=== PATIENT | female | born 1955 | race Caucasian/White ===

== ENCOUNTER → 2017-11-14 15:52 | Outpatient (CLI) | payer OTHER, SELFPAY ==
--- NOTE | 2017-11-14 16:46 | MRI_ITS ---
STUDY: MRI LUMBAR SPINE WITHOUT CONTRAST REASON FOR EXAM: Female, 62 years old. Low back pain radiating down right leg TECHNIQUE: Standardized fat and water weighted pulse sequences were obtained in the sagittal and axial planes. COMPARISON: November 18, 2008 FINDINGS: T12-L1: Narrowed disc space with desiccation of the disc and moderate bulging of the annulus Normal bilateral facet joints. Normal central canal and bilateral lateral recesses. Normal bilateral intervertebral neural foramina. Normal lumbar lordosis. There is no substantial scoliosis. Normal conus medullaris that terminates at T12-L1 L1-2: Normal endplates. Normal disc height, desiccation and mild bulging of the annulus.. Normal bilateral facet joints. Normal central canal and bilateral lateral recesses. Normal bilateral intervertebral neural foramina. L2-3: Normal endplates. Normal disc height, desiccation and mild bulging of the annulus.. Facet arthropathy. Normal central canal. Moderate bilateral recess and neuroforaminal encroachment.. L3-4: Narrowed disc space with degenerative endplate changes. There is desiccation of the disc and minor annular bulge in association with small left posterolateral/foraminal disc protrusion and right foraminal disc protrusion.. Bilateral facet arthropathy greater on the right.. Normal central canal. Moderate left lateral recess and neural foraminal stenosis with more severe narrowing on the right.. L4-5: Normal endplates. Normal disc height, desiccation and moderate bulging of the annulus. Bilateral facet arthropathy and thickening of ligamenta flava. Mild narrowing of the central canal. Moderate bilateral recess and neural foraminal stenosis. Normal central canal and bilateral lateral recesses. Normal bilateral intervertebral neural foramina. L5-S1: Grade 1 spondylolisthesis. Moderate bulging disc osteophyte complex with left posterolateral/foraminal disc protrusion. Bilateral facet arthropathy and thickening of ligamenta flava more severe on the left. Mild narrowing the central canal. Moderate to severe right lateral recess and neural foraminal stenosis and severe narrowing on the left. Normal visualized sacral ala. Normal visualized paraspinous soft tissue structures. There has been progressive increase in spondylosis and disc disease at all levels since previous study MRI/Spine Lumbar (Routine) IMPRESSION: Moderate spondylosis and multilevel disc disease.. Multilevel spinal stenosis secondary to disc disease and bony hypertrophy most severe in the right at L3-4 and on the right L5-S1 with findings as above Electronically Signed: Erasto Perez MD at 18:33 EDT , Service support ,
== END ==
PROVIDERS: Family Provider Family Medicine; PCP Family Medicine; Visit Provider Family Medicine
DX: M54.16 Radiculopathy, lumbar region (principal)
CPT/HCPCS: 72148

== ENCOUNTER 2020-06-30 17:22 | Outpatient (RCR) | payer OTHER, SELFPAY ==
[2020-06-30] MEDS: COVID-19 VACC, MRNA(PFIZER)/PF 30 MCG/0.3 ML SYRINGE IM (07:19)
[2020-07-21] MEDS: COVID-19 VACC, MRNA(PFIZER)/PF 30 MCG/0.3 ML SYRINGE IM (07:09)
== END 2020-06-30 23:59 ==
LOC: IMMUN 17:22
PROVIDERS: PCP Nurse Practitioner Family; Visit Provider Family Medicine
DX: Z23 Encounter for immunization (principal)
CPT/HCPCS: 0001A; 0002A; 91300

== ENCOUNTER 2024-10-22 07:45 | Day surgery (SDC) | payer OTHER, SELFPAY ==
--- NOTE | 2024-10-21 16:17 | PAT.ANESEVAL ---
Pre-Assessment Diagnosis/Proposed Procedure Planned Operative Procedure(s): EGD Anesthesia History Anesthesia History - refrigeration specialist: Anesthesia History - refrigeration specialist Hx Hospitalization Yes: ABD PAIN 10/21/24 09:16 Any Problems With Anesthesia No 10/21/24 09:16 Cholinesterase deficiency No 10/21/24 09:16 You/Your Family Experience No 10/21/24 09:16 fever (hyperthermia) with Relationship Recent Exposure to Contagious Disease Does patient have nerve No 10/21/24 09:16 stimulator Patient instructed to have device shut off --Does patient have Pacemaker or ICD? When Was Last Pacemaker Check QUESTION #4 FULL TEXT: You/Your Family Experience fever (hyperthermia) with Anesthesia Last Oral Intake Last Oral intake: Last Oral Intake NPO since Meds taken in AM with sips of water? Meds patient instructed to take am of surgery PONV PONV - refrigeration specialist: PONV - refrigeration specialist Female Yes 10/21/24 09:16 HX of Motion Sickness Yes 10/21/24 09:16 HX of N/V After Surgery Yes 10/21/24 09:16 Non-Smoker Yes 10/21/24 09:16 Duration of Surgery greater No 10/21/24 09:16 than 60 minutes Number of Risk Factors 4 10/21/24 09:16 PONV Score Severe Risk 10/21/24 09:16 Height & Weight Height & Weight: Anesthesia: Height & Weight Height 5 ft 2 in 08/25/24 09:31 Respiratory Assessment Respiratory Assessment - refrigeration specialist: Respiratory Tract Infection Hx - refrigeration specialist Hx Respiratory Tract Infection No 10/21/24 09:16 STOP Sleep Apnea STOP Sleep Apnea - refrigeration specialist: STOP Sleep Apnea - refrigeration specialist Hx Hypertension Yes 10/21/24 09:16 Hx Sleep Apnea No 10/21/24 09:16 CPAP BIPAP Do you snore loudly (louder No 10/21/24 09:16 than talking or can be heard Do you often feel tired/ No 10/21/24 09:16 fatigued/ sleepy during daytime? Has anyone observed you stop No 10/21/24 09:16 breathing during sleep? STOP Results Negative 10/21/24 09:16 QUESTION #5 FULL TEXT : Do you snore loudly (louder than talking or can be heard through closed doors)? Tobacco Use History Tobacco Use History - refrigeration specialist: Tobacco Use History - refrigeration specialist Tobacco Use Smoking Status Never smoker 10/21/24 09:16 Hx Tobacco Use No 10/21/24 09:16 Years Smoking Packs Smoked per Day Smoking Cessation Date was within the last 15 years Hx Smoking Cessation Date Hx Smoking Cessation Counseling Hematologic Medial History Hematologic Hx - refrigeration specialist: Hematologic Medical Hx - documentation specialist Hx of Blood Transfusion No 10/21/24 09:16 Hx of Transfusion in last 3 No 10/21/24 09:16 Months Date of Last Transfusion (if within last 3 months) Ever experience any problems No 10/21/24 09:16 with transfusion(s)? Specify any problems Hx of Preganancy in last 3 No 10/21/24 09:16 Months Nurse Filling Out Transfusion [facility] 10/21/24 09:16 & Questions: Date: 10/21/24 10/21/24 09:16 Time: 09:35 10/21/24 09:16 Patient unable to answer at this time (ie. confused, unrespo /Reproduction History /Reproductive History - refrigeration specialist: /Reproductive Hx- refrigeration specialist Hx Now No 10/21/24 09:16 Gestational Age (in weeks): EDC: Hx Hx Para Hx Section SAB No 10/21/24 09:16 [facility] Medical History (Updated 10/21/24 @ 13:45 by Kristen Morales) Wears dentures Wears glasses Cancer Ambulates with cane Arthritis Back pain Dietary restriction Gastric reflux Non-smoker Asthma History of pain when walking History of echocardiogram FH: total abdominal hysterectomy and bilateral salpingo-oophorectomy Radicular syndrome of left leg Protein-calorie malnutrition, severe Post-menopausal Obesity Nausea LUQ abdominal pain Lung mass Liver mass HTN (hypertension) Type 2 diabetes mellitus Hyperlipidemia Hypokalemia Fibrocystic breast disease Calf pain Breast calcification, left Asthma exacerbation Left leg weakness Neuroendocrine tumor GERD (gastroesophageal reflux disease) DDD (degenerative disc disease) Home Medications ?Medication ?Instructions ?Recorded ?Last Taken ?Type albuterol sulfate 90 mcg/actuation 2 puff inhalation Q6H PRN 08/14/24 Unknown History aerosol inhaler shortness of breath or wheezing famotidine 40 mg tablet 40 mg PO BID 08/14/24 Unknown History irbesartan 300 mg tablet 300 mg PO QDAY 08/14/24 Unknown History levocetirizine 5 mg tablet 5 mg PO QPM PRN allergy symptoms 08/14/24 Unknown History omeprazole 40 mg capsule,delayed 40 mg PO BID 08/14/24 Unknown History release ondansetron HCl 4 mg tablet 4 mg PO Q8H 08/14/24 Unknown History sertraline 50 mg tablet 50 mg PO QDAY 08/14/24 Unknown History sucralfate 1 gram tablet 1 g PO QAC 08/14/24 Unknown History amlodipine 5 mg tablet 10 mg PO DAILY 10/21/24 Unknown History Allergy/AdvReac Type Severity Reaction Status Date / Time adhesive tape (tape) Allergy Intermediate Rash Verified 10/21/24 09:12 azelastine (From Astelin) Allergy Intermediate Other Verified 10/21/24 09:12 ciprofloxacin (From Cipro) Allergy Intermediate Other Verified 10/21/24 09:12 doxycycline Allergy Intermediate Vomiting Verified 10/21/24 09:12 Penicillins (PCN) Allergy Intermediate Other Verified 10/21/24 09:12 prednisone Allergy Intermediate Other Verified 10/21/24 09:12 Sulfa (Sulfonamide Allergy Intermediate Other Verified 10/21/24 09:12 Antibiotics) Family History Father Aortic aneurysm CHF (congestive heart failure) Gout Mother Asthma Diabetes Sister Asthma Cancer Parkinson disease Brother Asthma Daughter Asthma Surgical History (Updated 10/21/24 @ 09:34 by Kristen Morales) History of hysterectomy History of appendectomy History of tonsillectomy and adenoidectomy Hx of cholecystectomy H/O rhinoplasty History of ankle surgery History of cataract extraction Social History Smoking Status: Never smoker alcohol intake: never substance use type: does not use Audit: Pertinent Findings Pertinent Findings Echo (EF%) pertinent findings: 06/25/2024. EF is 61%. No aortic stenosis is noted. Recommendation Anesthesia Recommendation Anesthesia recommendation: OPTIMIZED for anesthesia
[2024-10-22] VITALS (8 sets, daily range): BP systolic 124–171; BP diastolic 69–96; PULSE 69–85; RESP 16; TEMP 36.1–36.8; O2SAT 96–100; BMI 24.7
[2024-10-22] MEDS: Lactated Ringers 1,000 ML 15 ML IV (08:21)
--- NOTE | 2024-10-22 08:34 | PCM.PRE.AN2 ---
ASA Classification* ASA Classification ASA Classification: 3 Assessment & Plan Anesthesia* Anesthesia Assessment Anesthesia Assessment: Discussed sedation and/or anesthesia options, risks, benefits, and alternatives with patient/parents/legal guardian/POA. Questions invited. The patient/parents/legal guardian/POA seems to understand and agrees to proceed with anesthesia plan. Reviewed the physical assessment, medical history, allergy history and patient home medications list prior to surgery/procedure/anesthetic and documented any changes. Performed airway and anesthesia risk assessments. 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 When Was Last Pacemaker Check QUESTION #4 FULL TEXT: You/Your Family Experience fever (hyperthermia) with Anesthesia Any additional information?: No Last Oral Intake Last Oral intake: Last Oral Intake NPO since 23:00 10/22/24 08:18 Meds taken in AM with sips of Yes 10/22/24 08:18 water? Meds patient instructed to take am of surgery Any additional information?: No PONV PONV - test engineering manager: PONV - test engineering manager Female Yes 10/21/24 09:16 HX of Motion Sickness Yes 10/21/24 09:16 HX of N/V After Surgery Yes 10/21/24 09:16 Non-Smoker Yes 10/21/24 09:16 Duration of Surgery greater No 10/21/24 09:16 than 60 minutes Number of Risk Factors 4 10/21/24 09:16 PONV Score Severe Risk 10/21/24 09:16 Any additional information?: No Height & Weight Height & Weight: Anesthesia: Height & Weight Height 5 ft 3 in 10/22/24 08:18 Weight: 63.4 kg 10/22/24 08:18 Body Mass Index (BMI) 24.7 10/22/24 08:18 Respiratory Assessment Respiratory Assessment - test engineering manager: Respiratory Tract Infection Hx - test engineering manager Hx Respiratory Tract Infection No 10/21/24 09:16 Any additional information?: No STOP Sleep Apnea STOP Sleep Apnea - test engineering manager: STOP Sleep Apnea - test engineering manager Hx Hypertension Yes 10/21/24 09:16 Hx Sleep Apnea No 10/21/24 09:16 CPAP BIPAP Do you snore loudly (louder No 10/21/24 09:16 than talking or can be heard Do you often feel tired/ No 10/21/24 09:16 fatigued/ sleepy during daytime? Has anyone observed you stop No 10/21/24 09:16 breathing during sleep? STOP Results Negative 10/21/24 09:16 QUESTION #5 FULL TEXT : Do you snore loudly (louder than talking or can be heard through closed doors)? Any additional information?: No Tobacco Use History Tobacco Use History - test engineering manager: Tobacco Use History - test engineering manager Tobacco Use Smoking Status Never smoker 10/21/24 09:16 Hx Tobacco Use No 10/21/24 09:16 Years Smoking Packs Smoked per Day Smoking Cessation Date was within the last 15 years Hx Smoking Cessation Date Hx Smoking Cessation Counseling Hematologic Medial History Hematologic Hx - test engineering manager: Hematologic Medical Hx - disk grinder Hx of Blood Transfusion No 10/21/24 09:16 Hx of Transfusion in last 3 No 10/21/24 09:16 Months Date of Last Transfusion (if within last 3 months) Ever experience any problems No 10/21/24 09:16 with transfusion(s)? Specify any problems Hx of Preganancy in last 3 No 10/21/24 09:16 Months Nurse Filling Out Transfusion [facility] 10/21/24 09:16 & Questions: Date: 10/21/24 10/21/24 09:16 Time: 09:35 10/21/24 09:16 Patient unable to answer at this time (ie. confused, unrespo /Reproduction History /Reproductive History - test engineering manager: /Reproductive Hx- test engineering manager Hx Now No 10/21/24 09:16 Gestational Age (in weeks): EDC: Hx Hx Para Hx Section SAB No 10/21/24 09:16 Active Medications Active Medications: Current Medications Generic Name Dose Route Start Last Admin Trade Name Freq PRN Reason Stop Dose Admin Lactated Ringer's 1,000 mls @ 15 mls/hr 10/22/24 08:00 10/22/24 08:21 IV 15 mls/hr .Q48H RUDY Administration PFSH Medical History Wears dentures Wears glasses Cancer Ambulates with cane Arthritis Back pain Dietary restriction Gastric reflux Non-smoker Asthma History of pain when walking History of echocardiogram FH: total abdominal hysterectomy and bilateral salpingo-oophorectomy Radicular syndrome of left leg Protein-calorie malnutrition, severe Post-menopausal Obesity Nausea LUQ abdominal pain Lung mass Liver mass HTN (hypertension) Type 2 diabetes mellitus Hyperlipidemia Hypokalemia Fibrocystic breast disease Calf pain Breast calcification, left Asthma exacerbation Left leg weakness Neuroendocrine tumor GERD (gastroesophageal reflux disease) DDD (degenerative disc disease) Home Medications ?Medication ?Instructions ?Recorded ?Last Taken ?Type albuterol sulfate 90 mcg/actuation 2 puff inhalation Q6H PRN 08/14/24 Unknown History aerosol inhaler shortness of breath or wheezing famotidine 40 mg tablet 40 mg PO BID 08/14/24 10/22/24 History irbesartan 300 mg tablet 300 mg PO QDAY 08/14/24 10/22/24 History levocetirizine 5 mg tablet 5 mg PO QPM PRN allergy symptoms 08/14/24 Unknown History omeprazole 40 mg capsule,delayed 40 mg PO BID 08/14/24 10/22/24 History release ondansetron HCl 4 mg tablet 4 mg PO Q8H 08/14/24 10/22/24 History sertraline 50 mg tablet 50 mg PO QDAY 08/14/24 Unknown History sucralfate 1 gram tablet 1 g PO QAC 08/14/24 Unknown History amlodipine 5 mg tablet 10 mg PO DAILY 10/21/24 10/22/24 History octreotide acetate 50 mcg/mL 50 mcg subcut Q28D 10/22/24 Unknown History injection solution (Sandostatin) Allergy/AdvReac Type Severity Reaction Status Date / Time adhesive tape (tape) Allergy Intermediate Rash Verified 10/22/24 08:13 azelastine (From Astelin) Allergy Intermediate Other Verified 10/22/24 08:13 ciprofloxacin (From Cipro) Allergy Intermediate Other Verified 10/22/24 08:13 doxycycline Allergy Intermediate Vomiting Verified 10/22/24 08:13 Penicillins (PCN) Allergy Intermediate Other Verified 10/22/24 08:13 prednisone Allergy Intermediate Other Verified 10/22/24 08:13 Sulfa (Sulfonamide Allergy Intermediate Other Verified 10/22/24 08:13 Antibiotics) Family History Father Aortic aneurysm CHF (congestive heart failure) Gout Mother Asthma Diabetes Sister Asthma Cancer Parkinson disease Brother Asthma Daughter Asthma Surgical History (Updated 10/21/24 @ 09:34 by Kristen Morales) History of hysterectomy History of appendectomy History of tonsillectomy and adenoidectomy Hx of cholecystectomy H/O rhinoplasty History of ankle surgery History of cataract extraction Social History Smoking Status: Never smoker alcohol intake: never substance use type: does not use Review of Systems (Anesthesia) ROS Narrative System reviewed and no additional complaints, except as documented. Physical Exam Narrative patient appears to be slightly dehydrated, mucous membranes dry, slow cap refill Const alert, oriented x3 and average body habitus HEENT Mouth: dry mucous membranes Resp normal respiratory effort, normal air movement and clear to auscultation bilaterally Cardio regular rate and regular rhythm Extremity full ROM Skin Rashes: no rashes Neuro oriented x3 and moves all extremities
--- NOTE | 2024-10-22 09:15 | EGD_PTH ---
PATIENT: CAROLINA TORRES LOC: EN U#:[id number] AGE/SX: 69/F ROOM: RE10/22/[address]: Dr. Davidson Flowers DO : 1955 BED: DIS: 10/22/2024 SPEC #: [id number] RECD: 10/22/24 10:09 STATUS: MIAN SHAQ #: [id number] EDUARDO: 10/22/24 09:[address]: Davidson Flowers DEPT: SURGICAL PATHOLOGY RECD BY: Pierre Caro ENTERED: 10/22/24 15:20 SP TYPE: EGD BIOPSY TIMBO DR: Ana Salmeron, STAMPING DIE MAKER-C Tissues: A - Gastric mucous membrane B - Esophagus, NOS Procedures: Immunohistochemical Stains Surgery Specimen Level IV HEADER OPERATION: EGD, biopsy PRE-OP DIAGNOSIS: Gastroesophageal reflux disease TISSUE SUBMITTED: A- Gastric body biopsy, B- Distal esophagus biopsy MICROSCOPIC DIAGNOSIS A. Gastric body, biopsy: - Oxyntic mucosa with chronic inflammation. - IHC negative for H.pylori organisms. - Fragment of benign duodenal mucosa. B. Distal esophagus, biopsy: - Benign squamous and columnar mucosa. - Negative for goblet cell metaplasia. - Negative for dysplasia. MICROSCOPIC DESCRIPTION Slides are reviewed. All matched controls reacted appropriately. These tests were developed and their performance characteristics determined by [facility]. They may not have been cleared or approved by the [place]. Food and Drug Administration. The FDA has determined that such clearance or approval is not necessary.? The above immunohistochemical/dualISH?markers are reviewed by the Pathologist. GROSS DESCRIPTION A. Received in fixative is one container labeled with the patient's name and designated Gastric body biopsy. The specimen consists of multiple irregular fragments of light jain soft tissue that in aggregate measure 0.4 to 0.7 cm. The specimen is totally submitted in one cassette. B. Received in fixative is one container labeled with the patient's name and designated Distal esophagus biopsy. The specimen consists of one irregular fragment of light jain soft tissue that measures 0.4 cm. The specimen is totally submitted in one cassette. Yanet 10/22/2024 CPT:[id number]
--- NOTE | 2024-10-22 09:25 | HP.PCM_ITS ---
HPI - General General Date of Admission: 10/22/24 Date of Service: 10/22/24 Chief Complaint: GERD HPI Narrative CAROLINA TORRES, is a 69 F who presents for concerns regarding uncontrolled GERD. 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 She reports that her PCP recently increased her omeprazole to twice daily and she has been taking her famotidine twice daily and ondansetron as needed. She states that she takes both pills together at the same time in the morning and again at 4p. PCP records indicate testing done for serum H.pylori but no results found. 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 She was reporting worsening abd ominal pain and nausea after eating, had concerns due to primary carcinoid tumor not being located. A surgical consult has ruled out partial bowel obstruction. CT enterography demonstrated no lesions within the GI tract and did not show any evidence radiographically of bowel obstruction. She reports over 10 pound weight loss in 2months unintentionally. She reports taste changes since starting chemo treatments, takes ondansetron every morning upon waking and as needed through day, has heartburn that can get so bad it feels like I'm burning from the inside, abdominal pain mainly in the lower areas, and difficulty swallowing large pills. She has cut out spicy foods and red sauces, things that she usually loves to eat. She denies difficulty chewing, throat clearing, cough, sinus drainage not related to allergies, constipation, hematochezia, and melena. [facility] Medical History Wears dentures Wears glasses Cancer Ambulates with cane Arthritis Back pain Dietary restriction Gastric reflux Non-smoker Asthma History of pain when walking History of echocardiogram FH: total abdominal hysterectomy and bilateral salpingo-oophorectomy Radicular syndrome of left leg Protein-calorie malnutrition, severe Post-menopausal Obesity Nausea LUQ abdominal pain Lung mass Liver mass HTN (hypertension) Type 2 diabetes mellitus Hyperlipidemia Hypokalemia Fibrocystic breast disease Calf pain Breast calcification, left Asthma exacerbation Left leg weakness Neuroendocrine tumor GERD (gastroesophageal reflux disease) DDD (degenerative disc disease) Home Medications ?Medication ?Instructions ?Recorded ?Last Taken ?Type albuterol sulfate 90 mcg/actuation 2 puff inhalation Q 6H PRN 08/14/24 Unknown History aerosol inhaler shortness of breath or wheez ing famotidine 40 mg tablet 40 mg PO BID 08/14/24 History irbesartan 300 mg tablet 300 mg PO QDAY 08/14/2407/14 History levocetirizine 5 mg tablet 5 mg PO QPM PRN allergy sym ptoms 08/14/24 Unknown History omeprazole 40 mg capsule,delayed 40 mg PO BID 08/14/24 10/22/24 History release ondansetron HCl 4 mg tablet 4 mg PO Q8H 08/14/2410/22 History sertraline 50 mg tablet 50 mg PO QDAY 08/14/24 Unkno wn History sucralfate 1 gram tablet 1 g PO QAC 08/14/24 Unknown History amlodipine 5 mg tablet 10 mg PO DAILY 10/21/2407/14 History octreotide acetate 50 mcg/mL 50 mcg subcut Q28D Unknown History injection solution (Sandostatin) Allergy/AdvReac Type Severity Reaction Status Date / Time adhesive tape (tape) Allergy Intermediate Rash Verified 10/22/24 08:13 azelastine (From Astelin) Allergy Intermediate Other Verified 10/22/24 08:13 ciprofloxacin (From Cipro) Allergy Intermediate Other Verified 10/22/24 08:13 doxycycline Allergy Intermediate Vomiting Verified 10/22/24 08:13 Penicillins (PCN) Allergy Intermediate Other Verified 10/22/24 08:13 prednisone Allergy Intermediate Other Verified 10/22/24 08:13 Sulfa (Sulfonamide Allergy Intermediate Other Verified 10/22/24 08:13 Antibiotics) Family History Father Aortic aneurysm CHF (congestive heart failure) Gout Mother Asthma Diabetes Sister Asthma Cancer Parkinson disease Brother Asthma Daughter Asthma Surgical History History of hysterectomy History of appendectomy History of tonsillectomy and adenoidectomy Hx of cholecystectomy H/O rhinoplasty History of ankle surgery History of cataract extraction Social History Smoking Status: Never smoker alcohol intake: never substance use type: does not use ROS Constitutional Constitutional: Denies fatigue, fever(s), poor appetite, weight gain or weight loss Gastrointestinal Gastrointestinal: Denies belching, bloating, change in bowel habits, change in stool character, chewing difficulty, coffee ground emesis, constipation, cramping, diarrhea, dyspepsia, dysphagia, early satiety, excessive flatus, fecal incontinence, heartburn, hematemesis, hematochezia, hemorrhoids, loose stools, melena, nausea, odynophagia, rectal bleeding, tenesmus, vomiting or weight changes Vital Signs Vital Signs Vital Signs: 10/22/24 08:18 10/22/24 08:18 10/22/24 08:36 Temperature 98.3 F 98.3 F Temperature Source Temporal Pulse Rate 79 79 Respiratory Rate 16 16 Respiratory Pattern Normal Blood Pressure 142/84 H 142/84 H Blood Pressure Mean 103 Blood Pressure Source Monitor Blood Pressure Position Semi-Fowlers Blood Pressure Location Right Arm Pulse Ox 99 99 Oxygen Delivery Method Room Air Room Air Weight Weight: 139 lb 12.369 oz Body Mass Index (BMI) 24.7 Physical Exam Const alert, oriented x3, no apparent distress and healthy appearing General Appearance: cooperative GI normal to inspection, nondistended, normoactive bowel sounds, soft to palpation, non-tender and non-distended Percussion: normal to percussion Rectal Exam: deferred Assessment & Plan Assessment/Plan (1) Gastro-esophageal reflux disease without esophagitis: PLAN: Assessment and Plan Assessment and Plan (1) Gastroesophageal reflux disease: Qualifiers: Esophagitis presence: esophagitis presence not specified Qualified Code(s): K21.9 - Gastro-esophageal reflux disease without esophagitis Plan CAROLINA MELISSA, is a 69 F who presents to the office today for establishment with [facility] for concerns regarding uncontrolled GERD. Discussed care plan with her and her spouse. * space out timing of PPI and H2A, to take separately * may crush/dissolve sucralfate in order to take * add protein powder supplementation to water/applesauce to support weight maintenance * schedule EGD * she is to call office within 2wks to notify of symptom improvement w/medication timing adjustment * office FU PRN and w/test results
--- NOTE | 2024-10-22 09:52 | PCM.POST.ANE ---
Anesthesia: Postop Eval I Current Vital Signs Temperature: 97 F Pulse Rate: 85 Blood Pressure: 171/96 Respiratory Rate: 16 Pulse Ox: 100 Oxygen Delivery Method: Room Air Assessment Airway patent: Yes Spontaneous unlabored respirations: Yes Mental status: Awake and Calm nausea: No Vomiting: No Anesthesia Complication: No Fluid Hydration Crystalloid volume administer (ml): 900 Total IV fluid infused: 900 Progress Note Anesthesia document: Postop Eval 1 completed: Yes
--- NOTE | 2024-10-22 10:09 | OP.CCLET_ITS ---
10/22/2024 Ana Salmeron Re : Upper GI endoscopy procedure for Hina Salmeron This procedure was performed on October. My impressions and recommendations are as follows: Impressions : - Non-severe reflux esophagitis with no bleeding. Biopsied. - Moderate Schatzki ring. Dilated. - Chronic gastritis. Biopsied. - No gross lesions in the anastomosis. Biopsied. Recommendations : - Discharge patient to home. - Resume previous diet. - Continue present medications. - Await pathology results. My findings are described in the full procedure note, which is enclosed. If I can be of further assistance, please feel free to contact me at . Sincerely, Davidson Flowers, 10/22/2024 10:09:06 AM This report has been signed electronically.
--- NOTE | 2024-10-22 10:09 | OP.EGD_ITS ---
Patient Name: Hina Hawkins Procedure Date: 10/22/2024 9:31 AM Date of : 1955 Age: 69 Procedure: Upper GI endoscopy Indications: Epigastric abdominal pain, Dysphagia Providers: Davidson Flowers DO Medicines: Monitored Anesthesia Care Patient Profile: This is a 69 year old female. Refer to note in patient chart for documentation of history and physical. Patient has symptoms of acute dysphagia, acute dyspepsia, chronic heartburn and chronic nausea. Complications: No immediate complications. Procedure: Pre-Anesthesia Assessment: - Prior to the procedure, a History and Physical was performed, and patient medications and allergies were reviewed. The patient is competent. The risks and benefits of the procedure and the sedation options and risks were discussed with the patient. All questions were answered and informed consent was obtained. Patient identification and proposed procedure were verified by the physician in the pre-procedure area. Mental Status Examination: alert and oriented. Airway Examination: normal oropharyngeal airway and neck mobility. Respiratory Examination: clear to auscultation. CV Examination: normal. Prophylactic Antibiotics: The patient does not require prophylactic antibiotics. Prior Anticoagulants: The patient has taken no anticoagulant or antiplatelet agents except for NSAID medication. ASA Grade Assessment: II - A patient with mild systemic disease. After reviewing the risks and benefits, the patient was deemed in satisfactory condition to undergo the procedure. The anesthesia plan was to use monitored anesthesia care (MAC). Immediately prior to administration of medications, the patient was re-assessed for adequacy to receive sedatives. The heart rate, respiratory rate, oxygen saturations, blood pressure, adequacy of pulmonary ventilation, and response to care were monitored throughout the procedure. The physical status of the patient was re-assessed after the procedure. After obtaining informed consent, the endoscope was passed under direct vision. Throughout the procedure, the patient's blood pressure, pulse, and oxygen saturations were monitored continuously. The Endoscope was introduced through the mouth, and advanced to the third part of the duodenum. Small bowel enteroscopy was deemed necessary. The upper GI endoscopy was accomplished without difficulty. The patient tolerated the procedure well. Scope In: 9:44:45 AM Scope Out: 9:51:44 AM Total Procedure Duration Time 0 hours 6 minutes 59 seconds Findings: Non-severe esophagitis with no bleeding was found 39 to 40 cm from the incisors. Biopsies were taken with a cold forceps for histology. Verification of patient identification for the specimen was done. Estimated blood loss was minimal. A moderate Schatzki ring was found at the gastroesophageal junction. A guidewire was placed and the scope was withdrawn. Dilation was performed with a Savary dilator with no resistance at 54 Fr. The dilation site was examined and showed moderate mucosal disruption. Diffuse moderate inflammation characterized by congestion (edema), erythema, friability and mucus was found in the entire examined stomach. Biopsies were taken with a cold forceps for histology. Verification of patient identification for the specimen was done. Estimated blood loss was minimal. Biopsies were taken with a cold forceps for histology. Verification of patient identification for the specimen was done. Estimated blood loss was minimal. No gross lesions were noted in the anastomosis. Biopsies were taken with a cold forceps for histology. Verification of patient identification for the specimen was done. Estimated blood loss was minimal. Impression: - Non-severe reflux esophagitis with no bleeding. Biopsied. - Moderate Schatzki ring. Dilated. - Chronic gastritis. Biopsied. - No gross lesions in the anastomosis. Biopsied. Recommendation: - Discharge patient to home. - Resume previous diet. - Continue present medications. - Await pathology results. Procedure Code(s): --- Professional --- 36392, Esophagogastroduodenoscopy, flexible, transoral; with insertion of guide wire followed by passage of dilator(s) through esophagus over guide wire [id number], 59,51, Small intestinal endoscopy, enteroscopy beyond second portion of duodenum, not including ileum; with biopsy, single or multiple CPT copyright 2021 [employer]. All rights reserved. The codes documented in this report are preliminary and upon escalator service mechanic review may be revised to meet current compliance requirements. Davidson Flowers DO 10/22/2024 10:09:06 AM This report has been signed electronically. Number of Addenda: 0 Note Initiated On: 10/22/2024 9:31 AM
--- NOTE | 2024-10-22 10:10 | POSTOPAN2_ITS ---
Anesthesia Postop Eval I Sum Postop Eval Completion status Anesthesia document: Postop Eval 1 completed: Yes Anesthesia Postop Eval I Summary Anesthesia Postop Eval I Summary: Anesthesia Postop Eval I: Assessment Summary Airway patent Yes 10/22/24 09:53 [employer] MACHINE OPERATOR.MDOT Spontaneous unlabored Yes 10/22/24 09:53 [employer] MACHINE OPERATOR.MDOT respirations Mental status Awake,Calm 10/22/24 09:53 [employer] MACHINE OPERATOR.MDOT nausea No 10/22/24 09:53 [employer] MACHINE OPERATOR.MDOT Vomiting No 10/22/24 09:53 [employer] MACHINE OPERATOR.MDOT Anesthesia Postop Eval I: Fluid Summary Crystalloid volume administer 900 10/22/24 09:53 [employer] MACHINE OPERATOR.MDOT (ml) Colloids volume administered ( ml) Blood Product volume administered (ml) Total IV fluid infused 900 10/22/24 09:53 [employer] MACHINE OPERATOR.OT Anesthesia Postop Eval I: Summary Notes Anesthesia Complication No 10/22/24 09:53 CARBON CO[employer] MACHINE OPERATOR.MDOT Anesthesia Complication Comment: Post-operative progress note Anesthesia: Postop Eval II Evaluation Mental status: Awake and Calm Pain Level: 0 nausea: No Vomiting: No Complications Anesthesia Complication: No
--- NOTE | 2024-10-22 10:10 | PCM.POSTANE2 ---
Anesthesia Postop Eval I Sum Postop Eval Completion status Anesthesia document: Postop Eval 1 completed: Yes Anesthesia Postop Eval I Summary Anesthesia Postop Eval I Summary: Anesthesia Postop Eval I: Assessment Summary Airway patent Yes 10/22/24 09:53 [email or web address] Spontaneous unlabored Yes 10/22/24 09:53 [email or web address].MDOT respirations Mental status Awake,Calm 10/22/24 09:53 [email or web address] nausea No 10/22/24 09:53 [email or web address].MDOT Vomiting No 10/22/24 09:53 [email or web address].[email or web address] Anesthesia Postop Eval I: Fluid Summary Crystalloid volume administer 900 10/22/24 09:53 [email or web address].MDOT (ml) Colloids volume administered ( ml) Blood Product volume administered (ml) Total IV fluid infused 900 10/22/24 09:53 [email or web address].OT Anesthesia Postop Eval I: Summary Notes Anesthesia Complication No 10/22/24 09:53 [email or web address].MDOT Anesthesia Complication Comment: Post-operative progress note Anesthesia: Postop Eval II Evaluation Mental status: Awake and Calm Pain Level: 0 nausea: No Vomiting: No Complications Anesthesia Complication: No
== END 2024-10-22 10:39 | disposition home or self-care (01) ==
LOC: EN 07:50 → AC 07:51
PROVIDERS: PCP Nurse Practitioner Family; Referring Provider Nurse Practitioner Family; Visit Provider Internal Medicine Gastroenterology
PROC: 0DJ08ZZ Inspection of Upper Intestinal Tract, Via Natural or Artificial Opening Endoscopic (ICD-10-PCS; CPT 43235; principal; 2024-10-22 09:10)
DX: K29.50 Unspecified chronic gastritis without bleeding (principal); E11.9 Type 2 diabetes mellitus without complications; I10 Essential (primary) hypertension; Z79.899 Other long term (current) drug therapy; K21.00 Gastro-esophageal reflux disease with esophagitis, without bleeding; E78.5 Hyperlipidemia, unspecified; J45.909 Unspecified asthma, uncomplicated; K22.2 Esophageal obstruction; Z98.0 Intestinal bypass and anastomosis status
CPT/HCPCS: 43239; 43248; 88305; 88342; C1769